=== PATIENT | female | born 1980 | race Hispanic/Latino ===

== ENCOUNTER 2017-04-26 11:14 | Emergency (ER) | payer SELFPAY ==
[~2017-04-26] VITALS: Ht 165.1 cm; Wt 61.8 kg
[2017-04-26 12:40] LABS: HEMATOCRIT 40.9 % (36.0-46.0); MCH 30.4 PG (29.0-34.0); MCHC 34.7 G/DL (30.0-36.0); MCV 87.6 FL (83-99); MEAN PLAT.VOLUME 11.3 uM^3 (9.5-12.4); PLATELET COUNT 298 K/uL (156-360); RBC DIS.WIDTH-CV 13.1 % (11.8-14.6); RED BLOOD COUNT 4.67 M/uL (3.80-5.20); WHITE BLOOD COUNT 16.4 K/uL (4.1-10.2)
[2017-04-26 12:48] LABS: CHLORIDE 107 mEq/L (99-109); POTASSIUM 3.7 mEq/L (3.7-5.4); SODIUM 139 mEq/L (136-147)
[2017-04-26 12:50] LABS: GLUCOSE 95 mg/dL (70-99)
[2017-04-26 12:52] LABS: ANION GAP 12 MEQ/L (2-14); TOTAL BILIRUBIN 0.4 mg/dL (0.0-1.0)
[2017-04-26 12:54] LABS: ALKALINE PHOSPHATASE 97 IU/L (3-129)
[2017-04-26 12:55] LABS: GFR ESTIMATE (CALCULATED) > 59 mL/min/; UREA NITROGEN (BUN) 15 mg/dL (9-23)
[2017-04-26 13:05] LABS: QUANTITATIVE HCG < 4.0 MIU/ML
[2017-04-26 13:51] LABS: LIPASE 133 U/L (1.0-51.0)
[2017-04-26 13:57] LABS: ADD MIUA? NO; BILIRUBIN NEGATIVE; BLOOD NEGATIVE; COLOR STRAW ((YELLOW)); GLUCOSE (STRIP) NEGATIVE; KETONES 5; LEUKOCYTES NEGATIVE; NITRITE NEGATIVE; PROTEIN (STRIP) NEGATIVE; SPECIFIC GRAVITY 1.008 (1.000-1.030); UCUL ADDED? NO; UROBILINOGEN 0.2 MG/DL (0.2-1.0)
[2017-04-26 13:57] LABS: TROP-I INTERPRETATION NEGATIVE; TROPONIN-I < 0.01 ng/mL (0.0-0.30)
[2017-04-26 15:59] LABS: TROP-I INTERPRETATION NEGATIVE; TROPONIN-I < 0.01 ng/mL (0.0-0.30)
[2017-04-26] MEDS ORDERED: DESYREL100 MG PO (16:20)
[2017-04-26] MEDS ORDERED: ZOLOFT50 MG PO (16:20)
[2017-04-26] MEDS ORDERED: CLONAZEPAM0.5 MG PO (16:28)
[2017-04-26] MEDS ORDERED: ZOLOFT100 MG PO (16:28)
[2017-04-26] MEDS ORDERED: IMODIUM A-D2 M2 PO (16:29)
[2017-04-26] MEDS ORDERED: CYANOCOBAL1000 MCG/2 IM (16:29)
[2017-04-26] MEDS ORDERED: PHENTERMINE HCL15 MG PO (16:29)
[2017-04-27 01:30] VITALS: BP 99/54
== END 2017-04-27 01:31 | disposition short-term general hospital (02) ==
LOC: EME 11:14
PROVIDERS: Physician Assistant Medical
DX: K83.1 Obstruction of bile duct (principal)
CPT/HCPCS: 71020; 74177; 74181; 80053; 81003; 83690; 84484; 84702; 85027; 93005; 99281; 99285; J2270; J7030